=== PATIENT | female | born 1960 | race Two or more races ===

== ENCOUNTER → 2017-07-04 | Outpatient (CLI) | payer BC | END | disposition home or self-care (01) | LOC: RAD 15:38 → EDSTATUS 16:30 | PROVIDERS: ATTEND Family Medicine | DX: N88.8 Other specified noninflammatory disorders of cervix uteri (principal) | CPT/HCPCS: 76830 ==

== ENCOUNTER 2019-06-18 10:46 | Outpatient (CLI) | payer BC | END 2019-06-18 23:59 | disposition home or self-care (01) | LOC: CFH 10:46 | PROVIDERS: ATTEND Family Medicine | DX: Z12.31 Encounter for screening mammogram for malignant neoplasm of breast (principal); N64.89 Other specified disorders of breast | CPT/HCPCS: 77063; 77067 ==